=== PATIENT | female | born 1975 | race Caucasian/White ===

== ENCOUNTER → 2016-06-06 | Outpatient (REF) | payer OTHER ==
[2016-06-06 19:32] LABS: VITAMIN B12 LEVEL 448 PG/ML (247-911)
[2016-06-06 19:37] LABS: FERRITIN 178 NG/ML (8-252)
[2016-06-07 10:59] LABS: PRETREATED FOLATE FOR RBCFOL 18.7 NG/ML
== END ==
LOC: M LAB REF 17:10
PROVIDERS: ATTEND Nurse Practitioner Adult Health
DX: Z98.84 Bariatric surgery status (principal)

== ENCOUNTER → 2017-05-25 | Outpatient (CLI) | payer OTHER | LOC: M RAD 17:24 | DX: D25.9 Leiomyoma of uterus, unspecified (principal) ==

== ENCOUNTER → 2017-06-07 | Outpatient (REF) | payer OTHER ==
[2017-06-07 18:01] LABS: IRON (FE) 86 UG/DL (50-170)
[2017-06-07 18:01] LABS: FERRITIN 46 NG/ML (8-252)
[2017-06-07 18:05] LABS: TOTAL 25(OH) VITAMIN D 33.5 NG/ML (30.0-100.0); VITAMIN B12 LEVEL 464 PG/ML
[2017-06-07 18:06] LABS: FOLATE 17.7 NG/ML
== END ==
LOC: M LAB REF 17:03
DX: D64.9 Anemia, unspecified (principal); Z98.84 Bariatric surgery status

== ENCOUNTER → 2017-10-04 | Outpatient (CLI) | payer OTHER | LOC: M WUC 15:13 | DX: S62.346A Nondisplaced fracture of base of fifth metacarpal bone, right hand, initial encounter for closed fracture (principal); X58.XXXA Exposure to other specified factors, initial encounter; Y92.89 Other specified places as the place of occurrence of the external cause | CPT/HCPCS: 73130 ==

== ENCOUNTER → 2018-06-28 | Outpatient (REF) | payer OTHER ==
[2018-06-28 19:26] LABS: HEMATOCRIT 37.9 % (36.0-47.0)
== END ==
LOC: M LAB REF 16:51
PROVIDERS: ATTEND Nurse Practitioner Adult Health
DX: D64.9 Anemia, unspecified (principal); Z98.84 Bariatric surgery status

== ENCOUNTER → 2018-09-28 | Outpatient (CLI) | payer OTHER | LOC: M PLARAD 08:58 | PROVIDERS: ATTEND Orthopaedic Surgery Sports Medicine | DX: Z53.9 Procedure and treatment not carried out, unspecified reason (principal) ==

== ENCOUNTER → 2019-12-03 | Outpatient (REF) | payer OTHER ==
[2019-12-03 17:02] LABS: HEMATOCRIT 37.5 % (36.0-47.0)
[2019-12-03 17:10] LABS: PERCENT SATURATION 44.1 % (13.2-45.0)
== END ==
LOC: M LAB REF 16:09
PROVIDERS: ATTEND Nurse Practitioner Adult Health
DX: D64.9 Anemia, unspecified (principal); Z98.84 Bariatric surgery status

== ENCOUNTER → 2020-06-26 | Outpatient (CLI) | payer SELFPAY | LOC: M LABSMTC 14:20 | PROVIDERS: ATTEND Pediatrics | DX: Z20.822 Contact with and (suspected) exposure to COVID-19 (principal) ==

== ENCOUNTER → 2020-12-08 | Outpatient (REF) | payer OTHER ==
[2020-12-08 16:15] LABS: HEMATOCRIT 34.2 % (36.0-47.0)
[2020-12-08 17:02] LABS: PERCENT SATURATION 22.6 % (13.2-45.0)
== END ==
LOC: M LAB REF 15:55
PROVIDERS: ATTEND Nurse Practitioner Adult Health
DX: D64.9 Anemia, unspecified (principal); Z98.84 Bariatric surgery status

== ENCOUNTER → 2021-04-23 | Outpatient (CLI) | payer OTHER | LOC: M WUC 15:46 | PROVIDERS: ATTEND Physician Assistant | DX: S61.200A Unspecified open wound of right index finger without damage to nail, initial encounter (principal); X58.XXXA Exposure to other specified factors, initial encounter; Y92.9 Unspecified place or not applicable; Y93.9 Activity, unspecified; Y99.9 Unspecified external cause status ==

== ENCOUNTER → 2021-12-08 | Outpatient (REF) | payer OTHER ==
[2021-12-08 12:51] LABS: HEMATOCRIT 32.7 % (36.0-47.0)
[2021-12-08 17:48] LABS: PERCENT SATURATION 13.1 % (13.2-45.0)
== END ==
LOC: M LAB REF 12:18
PROVIDERS: ATTEND Nurse Practitioner Adult Health
DX: D64.9 Anemia, unspecified (principal)

== ENCOUNTER → 2023-04-05 | Outpatient (REF) | payer OTHER ==
[2023-04-05 12:44] LABS: HEMATOCRIT 34.4 % (36.0-47.0)
[2023-04-05 13:01] LABS: PERCENT SATURATION 8.2 % (13.2-45.0)
[2023-04-05 13:04] LABS: FERRITIN 21.1 NG/ML (7.3-270.7)
== END ==
LOC: M LAB REF 12:13
PROVIDERS: ATTEND Nurse Practitioner Adult Health
DX: D64.9 Anemia, unspecified (principal); Z98.84 Bariatric surgery status

== ENCOUNTER → 2023-07-19 | Outpatient (REF) | payer OTHER ==
[2023-07-19 14:55] LABS: PERCENT SATURATION 94.8 % (13.2-45.0)
== END ==
LOC: M LAB REF 13:19
PROVIDERS: ATTEND Nurse Practitioner Adult Health
DX: D64.9 Anemia, unspecified (principal)

== ENCOUNTER → 2023-11-22 | Outpatient (REF) | payer OTHER ==
[2023-11-22 13:17] LABS: PERCENT SATURATION 29.4 % (13.2-45.0)
[2023-11-22 13:19] LABS: FERRITIN 150.4 NG/ML (7.3-270.7)
== END ==
LOC: M LAB REF 11:46
PROVIDERS: ATTEND Nurse Practitioner Adult Health
DX: D64.9 Anemia, unspecified (principal)

== ENCOUNTER → 2024-04-08 | Outpatient (REF) | payer OTHER ==
[2024-04-08 17:58] LABS: FERRITIN 113.1 NG/ML (7.3-270.7)
[2024-04-08 18:00] LABS: PERCENT SATURATION 62.3 % (13.2-45.0)
== END ==
LOC: M LAB REF 12:21
PROVIDERS: ATTEND Nurse Practitioner Adult Health
DX: D64.9 Anemia, unspecified (principal)

== ENCOUNTER → 2024-07-11 | Outpatient (REF) | payer OTHER ==
[2024-07-11 12:13] LABS: HEMATOCRIT 38.8 % (36.0-47.0)
[2024-07-11 12:20] LABS: PERCENT SATURATION 37.5 % (13.2-45.0)
[2024-07-11 12:22] LABS: FERRITIN 98.5 NG/ML (7.3-270.7)
== END ==
LOC: M LAB REF 11:41
PROVIDERS: ATTEND Nurse Practitioner Adult Health
DX: R74.01 Elevation of levels of liver transaminase levels (principal); Z98.84 Bariatric surgery status; D64.9 Anemia, unspecified

== ENCOUNTER → 2025-01-27 | Outpatient (REF) | payer OTHER ==
[2025-01-27 18:45] LABS: IRON (FE) 158.0 UG/DL (50-170); PERCENT SATURATION 57.0 % (13.2-45.0)
[2025-01-27 19:38] LABS: LYMPHOCYTES 12 % (16-44); MONOCYTES 7 % (0-5); NEUTROPHILS 81 % (28-66); PLATELET ESTIMATE NORMAL (NORMAL)
== END ==
LOC: M LAB REF 17:14
PROVIDERS: ATTEND Nurse Practitioner Adult Health
DX: D64.9 Anemia, unspecified (principal); D72.9 Disorder of white blood cells, unspecified

== ENCOUNTER → 2025-02-24 | Outpatient (CLI) | payer OTHER | LOC: M WUC 13:39 | PROVIDERS: ATTEND Nurse Practitioner Adult Health | DX: M25.552 Pain in left hip (principal) ==